=== PATIENT | female | born 1960 | race Caucasian/White ===

== ENCOUNTER → 2024-01-20 15:51 | Outpatient (REF) | payer OTHER, SELFPAY | LOC: DHCBC HW 15:51 | PROVIDERS: ATTENDING PHYSICIAN Internal Medicine Cardiovascular Disease; FAMILY PHYSICIAN Student in an Organized Health Care Education/Training Program | DX: R07.2 Precordial pain (principal) | CPT/HCPCS: 93306 ==

== ENCOUNTER → 2024-02-20 14:12 | Outpatient (REF) | payer OTHER, SELFPAY | LOC: RCS 14:12 | PROVIDERS: ATTENDING PHYSICIAN Internal Medicine Cardiovascular Disease; FAMILY PHYSICIAN Student in an Organized Health Care Education/Training Program | DX: R07.2 Precordial pain (principal) | CPT/HCPCS: 93017 ==

== ENCOUNTER → 2024-10-06 14:29 | Outpatient (REF) | payer OTHER, SELFPAY | LOC: HWRAD 14:29 | PROVIDERS: ATTENDING PHYSICIAN Student in an Organized Health Care Education/Training Program | DX: R07.89 Other chest pain (principal) | CPT/HCPCS: 71046 ==

== ENCOUNTER 2025-05-02 15:54 | Outpatient (RCR) | payer OTHER, SELFPAY | END 2025-05-02 23:59 | disposition home or self-care (01) | LOC: RPT 15:54 | PROVIDERS: ATTENDING PHYSICIAN Nurse Practitioner Family; FAMILY PHYSICIAN Student in an Organized Health Care Education/Training Program | DX: N89.1 Moderate vaginal dysplasia (principal); Z73.6 Limitation of activities due to disability | CPT/HCPCS: 97110; 97161; 97530 ==

== ENCOUNTER 2025-06-16 15:55 | Outpatient (RCR) | payer OTHER, SELFPAY | END 2025-06-16 23:59 | disposition home or self-care (01) | LOC: RPT 15:55 | PROVIDERS: ATTENDING PHYSICIAN Nurse Practitioner Family; FAMILY PHYSICIAN Student in an Organized Health Care Education/Training Program | DX: N89.1 Moderate vaginal dysplasia (principal); Z73.6 Limitation of activities due to disability | CPT/HCPCS: 97110; 97112; 97530 ==

== ENCOUNTER 2025-06-30 16:15 | Outpatient (RCR) | payer OTHER, SELFPAY | END 2025-06-30 23:59 | disposition home or self-care (01) | LOC: RPT 16:15 | PROVIDERS: ATTENDING PHYSICIAN Nurse Practitioner Family; FAMILY PHYSICIAN Student in an Organized Health Care Education/Training Program | DX: N89.1 Moderate vaginal dysplasia (principal); Z73.6 Limitation of activities due to disability | CPT/HCPCS: 97110; 97112; 97530 ==

== ENCOUNTER 2025-08-11 15:57 | Outpatient (RCR) | payer OTHER, SELFPAY | END 2025-08-11 23:59 | disposition home or self-care (01) | LOC: RPT 15:57 | PROVIDERS: ATTENDING PHYSICIAN Nurse Practitioner Family; FAMILY PHYSICIAN Student in an Organized Health Care Education/Training Program | DX: N89.1 Moderate vaginal dysplasia (principal); Z73.6 Limitation of activities due to disability | CPT/HCPCS: 97014; 97110; 97112 ==

== ENCOUNTER 2025-08-25 16:53 | Outpatient (RCR) | payer MEDICARE, SELFPAY | END 2025-08-25 23:59 | disposition home or self-care (01) | LOC: RPT 16:53 | PROVIDERS: ATTENDING PHYSICIAN Nurse Practitioner Family; FAMILY PHYSICIAN Student in an Organized Health Care Education/Training Program | DX: N89.1 Moderate vaginal dysplasia (principal); Z73.6 Limitation of activities due to disability | CPT/HCPCS: 97110; 97112; 97161 ==

== ENCOUNTER 2025-09-23 08:29 | Outpatient (RCR) | payer MEDICARE, SELFPAY | END 2025-09-23 23:59 | disposition home or self-care (01) | LOC: RPT 08:29 | PROVIDERS: ATTENDING PHYSICIAN Nurse Practitioner Family; FAMILY PHYSICIAN Family Medicine | DX: N89.1 Moderate vaginal dysplasia (principal); Z73.6 Limitation of activities due to disability; M62.89 Other specified disorders of muscle | CPT/HCPCS: 97112; 97530 ==

== ENCOUNTER 2025-10-19 11:27 | Outpatient (RCR) | payer MEDICARE, SELFPAY | END 2025-10-19 13:51 | disposition home or self-care (01) | LOC: RPT 11:27 | PROVIDERS: ATTENDING PHYSICIAN Nurse Practitioner Family; FAMILY PHYSICIAN Family Medicine | DX: N89.1 Moderate vaginal dysplasia (principal); Z73.6 Limitation of activities due to disability; M62.89 Other specified disorders of muscle | CPT/HCPCS: 97110; 97112; 97530 ==